=== PATIENT | female | born 1975 | race Caucasian/White ===

== ENCOUNTER 2025-05-17 06:06 | Day surgery (SDC) | payer OTHER ==
[2025-05-16 14:21] VITALS: BMI 34.2
[2025-05-17] MEDS ORDERED: AFRIN NASAL MIST 15 ML BOT ONE (08:28)
[2025-05-17 09:05] LABS: Hematocrit 41.5 % (34.9-44.5)
[2025-05-17 09:18] LABS: BHCG - Serum Negative (NEGATIVE); Pregs Control Background? CLEAR/WHITE (CLR/WHITE); Pregs Control Bar Appear? YES (CONTROL BAR)
[2025-05-17] MEDS ORDERED: PROPOFOL 20 ML ONE ×2 (10:28→11:31)
[2025-05-17] MEDS ORDERED: Lidocaine 1% PF 5 ML VIAL ONE (10:29)
[2025-05-17] MEDS ORDERED: Rocuronium Bromide 10 MG/ML (10ML VIAL) ONE (10:29)
[2025-05-17] MEDS ORDERED: Lidocaine 1% w/Epinephrine 1:200K 30 ML VIAL ONE (10:30)
[2025-05-17] MEDS ORDERED: EPINEPHrine 1 MG/10 ML Abboject SYRINGE ONE (10:55)
[2025-05-17] MEDS ORDERED: Ondansetron PF 4 MG/2 ML Vial ONE (10:55)
[2025-05-17] MEDS ORDERED: Sodium Bicarb 50 MEQ/50 ML Abboject 8.4% SYRINGE ONE (10:55)
[2025-05-17] MEDS ORDERED: SUGAMMADEX SODIUM 200 MG/2 ML VIAL ONE (11:20)
[2025-05-17] MEDS ORDERED: Albuterol HFA (OR) 200 PUFF INH ONE (11:28)
[2025-05-17] MEDS ORDERED: Sevoflurane 250 ML INH ANEST BOTTLE ONE (11:30)
[2025-05-17] MEDS ORDERED: diphenhydrAMINE 50 MG/ML VIAL ONE (11:52)
[2025-05-17] MEDS ORDERED: Racepinephrine 2.25% 0.5 ML NEB ONE (12:30)
== END 2025-05-17 14:15 | disposition home or self-care (01) ==
LOC: CSHSDC 06:06
PROVIDERS: ATTEND Specialist
DX: J32.4 Chronic pansinusitis (principal); J34.3 Hypertrophy of nasal turbinates; J30.89 Other allergic rhinitis; J45.998 Other asthma; J34.2 Deviated nasal septum; Z87.59 Personal history of other complications of pregnancy, childbirth and the puerperium
CPT/HCPCS: 84703; 85014; J0165; J0169; J1100; J1200; J2405; J2704; J3010; J7620